=== PATIENT | male | born 1930 ===

== ENCOUNTER 2019-12-05 10:51 | Observation (INO) ==
[2019-12-05 11:46] LABS: Hematocrit 38.5 % (40.1-51.0); Hemoglobin 11.7 g/dL (13.7-17.5); Mean Cell Volume 99.5 fL (80.0-100.0); Mean Corpuscular HGB Conc 30.4 g/dL (31.0-36.0); Mean Platelet Volume 12.1 fL (7.4-10.4); Platelet Count 276 K/mcL (140-440); RBC 3.87 M/mcL (4.63-6.08); Red Cell Distribution Width 14.4 % (11.5-14.5); WBC 7.7 K/mcL (4.50-11.00)
--- NOTE | 2019-12-05 11:56 | XRay Report ---
CLINICAL INFORMATION: preop COMPARISON: 06/29/2018 FINDINGS: Moderate cardiomegaly is unchanged. Sternotomy changes again noted. Mediastinum and pulmonary vessels are normal. Lungs are clear. No effusions. IMPRESSION: Moderate stable cardiomegaly Interpreted and Authenticated by: Deshaun Kirby 12/05/19
[2019-12-05 12:01] LABS: INR 1.1 (0.9-1.1); Prothrombin Time 14.8 sec (11.9-14.5)
[2019-12-05 12:03] LABS: ALT/SGPT 28 U/l (0-40); AST/SGOT 26 U/l (0-37); Albumin 3.9 gm/dL (3.2-5.2); Albumin/Globulin Ratio 1.2 (1.0-2.3); Alkaline Phosphatase 129 U/L (39-117); Bilirubin,Total 0.4 mg/dL (0.0-1.0); Blood Urea Nitrogen 15 mg/dl (8-23); Calcium 9.7 mg/dl (8.6-10.4); Carbon Dioxide 20 mmol/L (22-30); Chloride 107 mmol/L (96-108); Globulin 3.2 gm/dL (2.2-3.7); Glomerular Filtration Rate 41; Glucose 92 mg/dL (70-105)
[2019-12-05] MEDS ORDERED: PIPERACILLIN SODIUM/TAZOBACTAM 3.375 GM in DEXTROSE 5% IN WATER 50 ML IV ONE (12:40)
--- NOTE | 2019-12-05 12:40 | Emergency Department Note ---
Lower Extremity Injury HPI General Chief Complaint: Extremity Injury, Lower Stated Complaint: leg wound Time Seen by Provider: 12/05/19 10:54 Source: patient Mode of arrival: ambulatory Limitations: no limitations History of Present Illness HPI Narrative: Narrative: 89-year-old male presents after being sent over from Dr. pires's office. States 20 days ago he hit his right leg on a pellet. Has a wound and cellulitis subsequently that is getting worse rather than better. They have put him on a couple antibiotics with no improvement including doxycycline and Augmentin. Dr. wang states he continues to get worse rather than better and he would like us to take him to the OR to clean it out. No fever but has had chills intermittently the last few days. No nausea, vomiting, or diarrhea. Patient states he is on blood thinners for A. fib and he believes this made the wound worse originally with a large hematoma. Other than going to wound care and the oral antibiotics, no other home treatments. Has been trying to keep it elevated as much as possible. Related Data Home Medications Medication Instructions Recorded Confirmed amlodipine 2.5 mg PO QDAY 12/05/19 12/05/19 doxycycline hyclate 100 mg PO QDAY 12/05/19 12/05/19 nwboygsvygd-mxrhudgow-acz C-Mn 1 cap PO DAILY 12/05/19 12/05/19 [Glucosamine Chondroitin MaxStr] lisinopril 20 mg PO QDAY 12/05/19 12/05/19 omega-3 fatty acids-fish oil [Fish 1 cap PO DAILY 12/05/19 12/05/19 Oil] simvastatin 40 mg PO QHS 12/05/19 12/05/19 warfarin See Rx Instructions .ROUTE .COMPLEX 12/05/19 12/05/19 warfarin See Rx Instructions .ROUTE .COMPLEX 12/05/19 12/05/19 Allergies Allergy/AdvReac Type Severity Reaction Status Date / Time hydrocodone AdvReac Intermediate Agitated Verified 12/05/19 12:50 Review of Systems ROS ROS Narrative: Narrative: All systems ED: reviewed and negative except as stated. [facility] Narrative Patient History Narrative: Narrative: Medical/Surgical/Family History All Active Problems (Updated 12/05/19 @ 12:40 by ALICIA Mora) Leg wound, right (Acute) Cellulitis of right leg (Acute) Atrial fibrillation (Acute) Surgical History (Updated 12/05/19 @ 12:37 by ALICIA Mora) Aortic valve replaced (Acute) H/O knee surgery (Acute) History of cataract surgery (Acute) Social History Smoking Status: Never smoker Alcohol Intake Frequency: does not drink Substance Use: does not use Exam Narrative Narrative: Narrative: General Limitations: no limitations General appearance: Present alert Head Head: Present atraumatic and normocephalic Eye Eye: Present normal appearance; Absent conjunctival injection ENT ENT: Present normal exam, normal oropharynx, mucous membranes moist and normal external ear exam Neck Neck: Present normal inspection; Absent lymphadenopathy Chest Chest: Present symmetric chest wall rise Respiratory Respiratory: Present normal lung sounds bilaterally; Absent respiratory distress, rales/crackles, wheezes, stridor and accessory muscle use Cardiovascular Cardiovascular: Present regular rate and normal heart sounds Extremities Extremities: Present other (right leg with dressing CDI, surrounding redness/cellulits. Please see pictures by wound care this morning) Neurological Neurological: Present alert and oriented X3 Psychiatric Psychiatric: Present normal affect and normal mood Skin Skin: Present warm (WNL) Course Vital Signs Vital signs: Vital Signs Temperature 97.0 F 12/05/19 10:52 Pulse Rate 82 12/05/19 10:52 Respiratory Rate 19 12/05/19 10:52 Blood Pressure 161/78 12/05/19 10:52 Pulse Oximetry (%) 95 12/05/19 10:52 Temperature 97.0 F 12/05/19 10:52 Pulse Rate 77 12/05/19 12:47 Respiratory Rate 19 12/05/19 10:52 Blood Pressure 150/51 12/05/19 12:47 Pulse Oximetry (%) 95 12/05/19 12:47 MDM MDM Narrative Medical decision making narrative: Narrative: Failed outpatient antibiotic treatment. Will give IV antibiotics and prep for surgical debridement to the wound of the right lower leg. We do have a call into the hospitalist and Dr. wang with wound care will consult. @ 1400 I did speak with hospitalist Dr Ladd who agrees to accept pt Lab Data Lab results reviewed: Yes I reviewed the patient's lab results. Result diagrams: 12/05/19 11:10 12/05/19 11:10 Labs: Lab Results 12/05/19 12/05/19 12/05/19 Range/Units 11:10 11:10 11:10 WBC 7.7 (4.50-11.00) K/mcL RBC 3.87 L (4.63-6.08) M/mcL Hgb 11.7 L (13.7-17.5) g/dL Hct 38.5 L (40.1-51.0) % MCV 99.5 (80.0-100.0) fL MCH 30.2 (26.0-34.0) pg MCHC 30.4 L (31.0-36.0) g/dL RDW 14.4 (11.5-14.5) % Plt Count 276 (140-440) K/mcL MPV 12.1 H (7.4-10.4) fL Total Counted 100 Seg Neutrophils % 72 (38-78) % Band Neutrophils % 1 (0-10) % Lymphocytes % 8 L (15-49) % Monocytes % (Manual) 10 (1-12) % Eosinophils % (Manual) 6 (0-7) % Reactive Lymphocytes 3 H (0-2) % Platelet Estimate Normal (NORMAL) RBC Morphology Abnorm A (NORMAL) Anisocytosis Few A (NONE SEEN) Macrocytosis Few A (NONE SEEN) PT 14.8 H (11.9-14.5) sec INR 1.1 (0.9-1.1) VBG Lactic Acid (0.5-2.0) mmol/L Sodium 140 (133-145) mmol/L Potassium 4.8 (3.3-5.1) mmol/L Chloride 107 (96-108) mmol/L Carbon Dioxide 20 L (22-30) mmol/L Anion Gap 13.0 (8-16) BUN 15 (8-23) mg/dl Creatinine 1.5 H (0.7-1.2) mg/dl GFR Calculation 41 Glucose 92 (70-105) mg/dL Calcium 9.7 (8.6-10.4) mg/dl Total Bilirubin 0.4 (0.0-1.0) mg/dL AST 26 (0-37) U/l ALT 28 (0-40) U/l Alkaline Phosphatase 129 H (39-117) U/L Total Protein 7.1 (5.9-8.4) gm/dL Albumin 3.9 (3.2-5.2) gm/dL Globulin 3.2 (2.2-3.7) gm/dL Albumin/Globulin Ratio 1.2 (1.0-2.3) Urine Color Urine Appearance Urine pH (5.0-9.0) Ur Specific [place] (1.000-1.035) Urine Protein (NEG) mg/dL Urine Glucose (UA) (NEG) mg/dL Urine Ketones (NEG) mg/dL Urine Occult Blood (<0.03) mg/dL Urine Nitrate (NEG) Urine Bilirubin (NEG) mg/dL Urine Urobilinogen (NEG) mg/dL Ur Leukocyte Esterase (NEG) /uL Urine RBC (0-1) /hpf Urine WBC (0-4) /hpf Ur Squamous Epith Cells (0-4) /hpf Urine Bacteria (0) /hpf Hyaline Casts (0-2) /lpf Urine Mucus (0) /hpf Ur Culture Indicated? 12/05/19 12/05/19 Range/Units 11:10 12:32 WBC (4.50-11.00) K/mcL RBC (4.63-6.08) M/mcL Hgb (13.7-17.5) g/dL Hct (40.1-51.0) % MCV (80.0-100.0) fL MCH (26.0-34.0) pg MCHC (31.0-36.0) g/dL RDW (11.5-14.5) % Plt Count (140-440) K/mcL MPV (7.4-10.4) fL Total Counted Seg Neutrophils % (38-78) % Band Neutrophils % (0-10) % Lymphocytes % (15-49) % Monocytes % (Manual) (1-12) % Eosinophils % (Manual) (0-7) % Reactive Lymphocytes (0-2) % Platelet Estimate (NORMAL) RBC Morphology (NORMAL) Anisocytosis (NONE SEEN) Macrocytosis (NONE SEEN) PT (11.9-14.5) sec INR (0.9-1.1) VBG Lactic Acid 1.6 (0.5-2.0) mmol/L Sodium (133-145) mmol/L Potassium (3.3-5.1) mmol/L Chloride (96-108) mmol/L Carbon Dioxide (22-30) mmol/L Anion Gap (8-16) BUN (8-23) mg/dl Creatinine (0.7-1.2) mg/dl GFR Calculation Glucose (70-105) mg/dL Calcium (8.6-10.4) mg/dl Total Bilirubin (0.0-1.0) mg/dL AST (0-37) U/l ALT (0-40) U/l Alkaline Phosphatase (39-117) U/L Total Protein (5.9-8.4) gm/dL Albumin (3.2-5.2) gm/dL Globulin (2.2-3.7) gm/dL Albumin/Globulin Ratio (1.0-2.3) Urine Color Yellow Urine Appearance Clear Urine pH 6.0 (5.0-9.0) Ur Specific [place] 1.015 (1.000-1.035) Urine Protein 100 A (NEG) mg/dL Urine Glucose (UA) Negative (NEG) mg/dL Urine Ketones Neg (NEG) mg/dL Urine Occult Blood Neg (<0.03) mg/dL Urine Nitrate Neg (NEG) Urine Bilirubin Neg (NEG) mg/dL Urine Urobilinogen Neg (NEG) mg/dL Ur Leukocyte Esterase Neg (NEG) /uL Urine RBC 0 (0-1) /hpf Urine WBC < 1 (0-4) /hpf Ur Squamous Epith Cells 0 (0-4) /hpf Urine Bacteria 0 (0) /hpf Hyaline Casts 7 H (0-2) /lpf Urine Mucus Few (0) /hpf Ur Culture Indicated? No Radiology Data Radiology results reviewed: Yes I reviewed the patient's radiology results. Discharge Plan Patient/Caregiver Discharge Instructions Pt seen by SCADA TECHNICIAN/PA only: Yes Clinical Impression: Cellulitis of right leg Leg wound, right Qualifiers: Encounter type: subsequent encounter Qualified Code(s): S81.801D - Unspecified open wound, right lower leg, subsequent encounter Patient Disposition: Xfer As Outpt/Obs ([facility]) Condition: Fair Follow up with: William Wang [Primary Care Provider] - Hammad Mahmood MD [Physician] - Prescriptions: No Action doxycycline hyclate 100 mg Capsule 100 mg PO QDAY RF: 0 lisinopril 20 mg Tablet 20 mg PO QDAY RF: 0 amlodipine 2.5 mg Tablet 2.5 mg PO QDAY RF: 0 simvastatin 40 mg Tablet 40 mg PO QHS RF: 0 warfarin 5 mg Tablet See Rx Instructions .ROUTE .COMPLEX RF: 0 swnhbrzidvk-hdhwjfnqt-dlj C-Mn [Glucosamine Chondroitin MaxStr] 500-400 mg Capsule 1 cap PO DAILY RF: 0 omega-3 fatty acids-fish oil [Fish Oil] 360-1,200 mg Capsule 1 cap PO DAILY RF: 0 warfarin 2.5 mg Tablet See Rx Instructions .ROUTE .COMPLEX RF: 0
--- NOTE | 2019-12-05 12:59 | XRay Report ---
CLINICAL INFORMATION: wound, cellulitis, worsening COMPARISON: None. FINDINGS: Diffuse osteoporosis noted. No specific radiographic evidence for osteomyelitis. Joint spaces are normal in width and alignment arthritic change. Mild diffuse soft tissue swelling noted laterally IMPRESSION: Few soft tissue swelling, most prominent laterally, compatible cellulitis. No specific evidence for osteomyelitis. Interpreted and Authenticated by: Deshaun Kirby 12/05/19
[2019-12-05 13:07] LABS: Anisocytosis FEW (NONE SEEN); Band Neutrophils % 1 % (0-10); Eosinophils % (Manual) 6 % (0-7); Lymphocytes % 8 % (15-49); Macrocytosis FEW (NONE SEEN); Monocytes % (Manual) 10 % (1-12); Platelet Estimate NORMAL (NORMAL); RBC Morphology ABNORM (NORMAL); Reactive Lymphocytes 3 % (0-2); Segmented Neutrophils % 72 % (38-78)
[2019-12-05 13:33] LABS: Appearance,Urine CLEAR; Bacteria,Urine 0 /hpf (0); Bilirubin,Urine NEG (NEG); Color,Urine YELLOW; Culture Indicated,Urine NO; Glucose,Urine (UA) NEGATIVE (NEG); Ketones,Urine NEG (NEG); Leukocyte Esterase,Urine NEG /uL (NEG); Mucus,Urine FEW /hpf (0); Nitrate,Urine NEG (NEG); Protein,Urine 100 mg/dL (NEG); Specific Gravity,Urine 1.015 (1.000-1.035); Urine Blood NEG mg/dL (<0.03); Urine Hyaline Cast 7 /lpf (0-2); Urine RBC 0 /hpf (0-1); Urine Squamous Epithelial Cell 0 /hpf (0-4); Urine WBC < 1 /hpf (0-4); Urobilinogen,Urine NEG (NEG)
--- NOTE | 2019-12-05 16:14 | Internal Med History&Physical ---
HPI History of Present Illness Patient information: Note initiated : 12/05/19 at 4:08 pm Service Date, if different from initiated Date: [] Patient: Ugo Agustin a 89 y/o M admitted on for leg wound. Chief Complaint: [] History of present illness: Patient is an 89-year-old male with no significant past medical history who was ascended to the ER by wound care Dr. Mahmood office today. At the per patient, he hit his right leg on a pellet about 20 days ago. Since that, in the right leg has been becoming sweating and redness which has been worsening. Patient has been taken a couple of antibiotics including doxycycline and Augmentin which did not help. In the ER, x-ray -no osteomyelitis. Dr. Mahmood was consulted who will do a debridement this afternoon. When I saw this patient in the ER, other than mild pain from the right leg, he was fine. Denied headache, dizziness, chest pain, shortness breath, fever, chills, abdominal pain, or dysuria. Review of Systems All systems: reviewed and no additional remarkable complaints except as stated PFSH PFSH All Active Problems Leg wound, right (Acute) Cellulitis of right leg (Acute) Atrial fibrillation (Acute) Surgical History Aortic valve replaced (Acute) H/O knee surgery (Acute) History of cataract surgery (Acute) Social History smoking status: Never smoker alcohol intake frequency: does not drink substance use type: does not use MEDS/ALLERGIES Home Medications and Allergies Home Medications Medication Instructions Recorded Confirmed Type amlodipine 2.5 mg PO QDAY 12/05/19 12/05/19 History doxycycline hyclate 100 mg PO QDAY 12/05/19 12/05/19 History lmsmdnwceph-egtbfkklu-hex C-Mn 1 cap PO DAILY 12/05/19 12/05/19 History [Glucosamine Chondroitin MaxStr] lisinopril 20 mg PO QDAY 12/05/19 12/05/19 History omega-3 fatty acids-fish oil [Fish 1 cap PO DAILY 12/05/19 12/05/19 History Oil] simvastatin 40 mg PO QHS 12/05/19 12/05/19 History warfarin See Rx Instructions .ROUTE .COMPLEX 12/05/19 12/05/19 History warfarin See Rx Instructions .ROUTE .COMPLEX 12/05/19 12/05/19 History Allergies Allergy/AdvReac Type Severity Reaction Status Date / Time hydrocodone AdvReac Intermediate Agitated Verified 12/05/19 12:50 EXAM Constitutional Vitals: Temp Pulse Resp BP Pulse Ox 97.0 F 69 19 144/88 94 12/05/19 10:52 12/05/19 15:31 12/05/19 10:52 12/05/19 15:46 12/05/19 15:31 Additional findings Additional findings: General - No acute distress Eyes - PERRLA, EOM intact ENT no rhinorrhea, no noticeable or palpable swelling, no redness or rash around throat or on face Neck supple, no JVD, no thyromegaly Respiratory: Lungs -clear, no wheezing or crackles. Cardiovascular - RRR no m/r/g, GI - Normal bowel sounds, no distended, soft. Extremeties - right leg wrapped (refer to picture) Hemo/lymphatic/immune no lymphadenopathy Neurological Alert and oriented x 3, no focal neurological deficits. Psychiatry flat affect DATA Data Completed and Pending Labs: Labs from last 24 hours 12/05/19 12/05/19 12/05/19 12:57 12:32 11:10 WBC RBC Hgb Hct MCV MCH MCHC RDW Plt Count MPV Total Counted Seg Neutrophils % Band Neutrophils % Lymphocytes % Monocytes % (Manual) Eosinophils % (Manual) Reactive Lymphocytes Platelet Estimate RBC Morphology Anisocytosis Macrocytosis PT INR VBG Lactic Acid 1.6 Sodium Potassium Chloride Carbon Dioxide Anion Gap BUN Creatinine GFR Calculation Glucose Calcium Total Bilirubin AST ALT Alkaline Phosphatase Total Protein Albumin Globulin Albumin/Globulin Ratio Urine Color Yellow Urine Appearance Clear Urine pH 6.0 Ur Specific [place] 1.015 Urine Protein 100 A Urine Glucose (UA) Negative Urine Ketones Neg Urine Occult Blood Neg Urine Nitrate Neg Urine Bilirubin Neg Urine Urobilinogen Neg Ur Leukocyte Esterase Neg Urine RBC 0 Urine WBC < 1 Ur Squamous Epith Cells 0 Urine Bacteria 0 Hyaline Casts 7 H Urine Mucus Few Ur Culture Indicated? No SARS-CoV-2 (PCR) Covid-19 negative 12/05/19 12/05/19 12/05/19 11:10 11:10 11:10 WBC 7.7 RBC 3.87 L Hgb 11.7 L Hct 38.5 L MCV 99.5 MCH 30.2 MCHC 30.4 L RDW 14.4 Plt Count 276 MPV 12.1 H Total Counted 100 Seg Neutrophils % 72 Band Neutrophils % 1 Lymphocytes % 8 L Monocytes % (Manual) 10 Eosinophils % (Manual) 6 Reactive Lymphocytes 3 H Platelet Estimate Normal RBC Morphology Abnorm A Anisocytosis Few A Macrocytosis Few A PT 14.8 H INR 1.1 VBG Lactic Acid Sodium 140 Potassium 4.8 Chloride 107 Carbon Dioxide 20 L Anion Gap 13.0 BUN 15 Creatinine 1.5 H GFR Calculation 41 Glucose 92 Calcium 9.7 Total Bilirubin 0.4 AST 26 ALT 28 Alkaline Phosphatase 129 H Total Protein 7.1 Albumin 3.9 Globulin 3.2 Albumin/Globulin Ratio 1.2 Urine Color Urine Appearance Urine pH Ur Specific [place] Urine Protein Urine Glucose (UA) Urine Ketones Urine Occult Blood Urine Nitrate Urine Bilirubin Urine Urobilinogen Ur Leukocyte Esterase Urine RBC Urine WBC Ur Squamous Epith Cells Urine Bacteria Hyaline Casts Urine Mucus Ur Culture Indicated? SARS-CoV-2 (PCR) A/P Narrative A/P Narrative: 1. Leg wound, right 2. leg hematoma, right 3. Cellulitis of left, right XR - showed "Few soft tissue swelling, most prominent laterally, compatible ellulitis. No specific evidence for osteomyelitis." Blood culture wound culture Discussed with wound care Dr. Mahmood, who will do debridgement this afternoon. Vanco + zosyn x 1 was given in the OR, waiting for culture (since he has been treated by antiobiotics). Really appreciate it. wound care 4. Atrial fibrillation Had been on warfarin which was stopped 1 week ago due to to hematoma Discussed with pt and the benefits and risk of warfarin treatment. They fully understood. HR controlled 5. CKD stage 3, creatinine 2.0 on 07/05/2018 Avoid nephrotoxic meds Repeat renal function in morning 6. DVT prophylaxis: Heparin 7. CODE STATUS: DNR/DNI Time Spent With Patient Time: Total time spent is greater than 50% in coordination of care (as documented) at patient's floor/unit and/or counseling patient:
[2019-12-05] MEDS ORDERED: GLYCOPYRROLATE 0.2 MG/ML VIAL IV ONE (16:20)
[2019-12-05] MEDS ORDERED: ONDANSETRON 4 MG/2 ML VIAL ONE (16:20)
[2019-12-05] MEDS ORDERED: PROPOFOL 200 MG/20 ML VIAL IV ONE (16:20)
[2019-12-05] MEDS ORDERED: fentaNYL 100 MCG/2 ML VIAL IV ONE (16:20)
[2019-12-05] MEDS ORDERED: DEXAMETHASONE 10 MG/ML VIAL ONE (16:20)
[2019-12-05] MEDS ORDERED: PHENYLEPHRINE 10 MG/ML VIAL ONE (16:20)
[2019-12-05] MEDS ORDERED: LIDOCAINE HCL/PF 100 MG/5 ML SYRINGE IV ONE (16:20)
[2019-12-05] MEDS ORDERED: KETAMINE 100 MG/ML ML ONE (16:20)
[2019-12-05] MEDS ORDERED: cefTRIAXone 1 GM VIAL IV ONE (16:30)
[2019-12-05] MEDS ORDERED: VANCOMYCIN 1,500 MG in 0.9 % SODIUM CHLORIDE 500 ML IV ONE (16:30)
[2019-12-05] MEDS ORDERED: IPRATROPIUM/ALBUTEROL 3 ML AMPUL.NEB NEB PRN (16:44)
[2019-12-05] MEDS ORDERED: FLUMAZENIL 0.1 MG/ML ML IV PRN (16:44)
[2019-12-05] MEDS ORDERED: NALOXONE HCL 0.4 MG/ML VIAL IV PRN (16:44)
[2019-12-05] MEDS ORDERED: BENZOCAINE/MENTHOL 1 LOZENGE PO PRN (16:44)
[2019-12-05] MEDS ORDERED: fentaNYL 100 MCG/2 ML VIAL IV PRN (16:44)
[2019-12-05] MEDS ORDERED: LACTATED RINGERS 250 ML IV PRN (16:44)
[2019-12-05] MEDS ORDERED: ACETAMINOPHEN 1,000 MG/100 ML BOTTLE IV ONE (16:44)
--- NOTE | 2019-12-05 16:44 | Event Note ---
Event Note Event Note: Advanced Care Planning Documents: POLST form completed: Yes. I explained CPR and intubation in detail to Mr. Andujar and his , who declined CPR and intubation.
[2019-12-05] MEDS ORDERED: LACTATED RINGERS 1,000 ML IV SCH (16:45)
[2019-12-05] MEDS ORDERED: GENTAMICIN SULFATE 800 MG/20 ML VIAL IR ONE (17:04)
[2019-12-05] MEDS ORDERED: morphine 4 MG/ML VIAL IV PRN ×2 (17:13→17:39)
[2019-12-05] MEDS ORDERED: ONDANSETRON 4 MG/2 ML VIAL IV PRN ×2 (17:13→17:39)
[2019-12-05] MEDS ORDERED: traMADol 50 MG TABLET PO PRN ×2 (17:20→17:39)
--- NOTE | 2019-12-05 17:27 | Brief Operative Note ---
Brief Operative Note Date of procedure: 12/05/19 Pre-op diagnosis: Sepsis: Trauma wound RIGHT leg, Liquefying hematoma Post-op diagnosis: same Procedure: Excision of Gangrenous skin, Evacuation of hematoma, pulse lavage irrigation and open packing, Grafts/Implants: No Anesthesia: GLMA Findings: Organized clots (500+ CC ) + Blood loss in surgery 30 CC Complications: none Surgeon: Hammad Mahmood Estimated blood loss (cc): 530 Specimens Removed/Pathology: other (Gangrenous skin, Blood clots ( Hematoma for c/s and pathology )) Condition: stable Disposition: PACU
[2019-12-05] MEDS: HEPARIN 5,000 UNIT/ML VIAL SQ SCH (20:41)
[2019-12-05] MEDS: DOCUSATE SODIUM 100 MG CAPSULE PO SCH (20:41)
[2019-12-05] MEDS: SIMVASTATIN 40 MG TABLET PO SCH (20:41)
[2019-12-05] MEDS: 0.9 % SODIUM CHLORIDE 10 ML SYRINGE IV SCH (20:42)
[2019-12-05] MEDS ORDERED: HEPARIN 5,000 UNIT/ML VIAL SQ SCH (21:00)
[2019-12-05] MEDS ORDERED: SIMVASTATIN 40 MG TABLET PO SCH (21:00)
[2019-12-05] MEDS ORDERED: DOCUSATE SODIUM 100 MG CAPSULE PO SCH (21:00)
[2019-12-05] MEDS ORDERED: 0.9 % SODIUM CHLORIDE 10 ML SYRINGE IV SCH (22:00)
[2019-12-06] MEDS: 0.9 % SODIUM CHLORIDE 10 ML SYRINGE IV SCH ×3 (06:07→20:29)
[2019-12-06 06:41] LABS: Basophils # (Auto) 0.02 K/mcL (0.00-0.30); Basophils % (Auto) 0.4 % (0.0-2.0); Eosinophils # (Auto) 0.03 K/mcL (0.00-0.70); Eosinophils % (Auto) 0.6 % (0.0-7.0); Granulocytes % (Auto) 89.7 % (38.0-78.0); Hematocrit 34.1 % (40.1-51.0); Hemoglobin 10.4 g/dL (13.7-17.5); Lymphocytes % (Auto) 7.9 % (15.5-49.0); Mean Cell Volume 100.6 fL (80.0-100.0); Mean Corpuscular HGB Conc 30.5 g/dL (31.0-36.0); Mean Platelet Volume 12.7 fL (7.4-10.4); Monocytes # (Auto) 0.07 K/mcL (0.10-0.90); Monocytes % (Auto) 1.4 % (1.0-12.0); Platelet Count 249 K/mcL (140-440); RBC 3.39 M/mcL (4.63-6.08); Red Cell Distribution Width 14.3 % (11.5-14.5); WBC 5.1 K/mcL (4.50-11.00)
[2019-12-06 07:09] LABS: ALT/SGPT 19 U/l (0-40); AST/SGOT 20 U/l (0-37); Albumin 3.3 gm/dL (3.2-5.2); Albumin/Globulin Ratio 1.3 (1.0-2.3); Alkaline Phosphatase 106 U/L (39-117); Bilirubin,Total 0.3 mg/dL (0.0-1.0); Blood Urea Nitrogen 19 mg/dl (8-23); Calcium 9.4 mg/dl (8.6-10.4); Carbon Dioxide 22 mmol/L (22-30); Chloride 106 mmol/L (96-108); Globulin 2.6 gm/dL (2.2-3.7); Glomerular Filtration Rate 35; Glucose 162 mg/dL (70-105)
--- NOTE | 2019-12-06 07:09 | Operative Note ---
DATE OF OPERATION: 12/05/2019 PREOPERATIVE DIAGNOSES: Sepsis, complicated skin and skin structure infection; trauma wound right lower lateral leg with a liquefying hematoma and gangrene of skin. POSTOPERATIVE DIAGNOSES: Sepsis, complicated skin and skin structure infection; trauma wound right lower lateral leg with a liquefying hematoma and gangrene of skin. PROCEDURE: Excision of gangrenous skin; evacuation of hematoma; pulse lavage irrigation and open packing. ANESTHESIA: General laryngeal mask airway. FINDINGS: Organized blood clots under the necrotic skin, about 500 mL. SURGICAL BLOOD LOSS: During the procedure approximately 30 mL COMPLICATIONS: None. SPECIMENS FOR PATHOLOGY: Gangrenous skin, blood clots, hematoma, tissue for culture and sensitivity and pathology. WOUND DIMENSIONS: Post-surgical 9 x 6 cm. Undermining at 12 o'clock was 6 cm, at 6 o'clock for 4 cm. Wound depth about 5 cm. PROCEDURE IN DETAIL: I had reviewed the lab results and imaging studies. Detailed discussion about the indication of procedure, risks, benefits, complications and different case scenarios was carried out with the patient and family members, his and his daughter after workup in the Emergency Room. After obtaining informed consent, patient was taken to the operating room operating room, anesthetized uneventfully in supine position. A timeout was called. Intravenous antibiotics were given. Preoperative photographs were taken. The patient was placed in Trendelenburg position. First, the hematoma site was opened and digitally explored. Uigy-wq-[id number] all the devitalized necrotic skin was excised with pickup and Cazares scissors. Later, the copious organized soft blood clots were evacuated with digital exploration. This wound had extended almost up to the upper third of the leg superiorly and up to the ankle inferiorly. There was undermining of about 2 to 3 cm extending up to the keen anteriorly and to the calf posteriorly. All the blood clots were taken down. The fascia covering the musculature was intact. First, the wound was washed with normal saline. Later, we used 3 liters of normal saline mixed with 800 mg of gentamicin for pulse lavage irrigation. Towards completion, the field was looking clean. There were no residual clots or tissue debris that needed to be excised or removed. We placed a large Xeroform gauze on the wound bed and reinforced this with unfolded 2-inch Kerlix roll soaked in Betadine solution. This was held in place with 4 x 4 gauze, Kerlix bandage, ABD pad and Mykel bandages respectively. The patient recovered from operation uneventfully. He was taken to the med/surg floor in stable condition. I explained the intraoperative findings in detail to the patient's and daughter. Management was discussed and reviewed with the hospitalist and the nursing staff. VD:charan Job ID: [id number] Doc ID: [id number] Hammad MELLO
[2019-12-06] MEDS ORDERED: FUROSEMIDE 20 MG/2 ML VIAL IV ONE (07:33)
[2019-12-06] MEDS ORDERED: DEXTROSE 50% 50 ML VIAL IV ONE (07:35)
[2019-12-06] MEDS ORDERED: INSULIN LISPRO 1 UNIT/0.01 ML UNIT SQ ONE (07:36)
[2019-12-06] MEDS: HEPARIN 5,000 UNIT/ML VIAL SQ SCH ×2 (08:29→20:28)
[2019-12-06] MEDS: DOCUSATE SODIUM 100 MG CAPSULE PO SCH ×2 (08:29→20:29)
[2019-12-06] MEDS: amLODIPine 5 MG TABLET PO SCH (08:29)
[2019-12-06] MEDS ORDERED: LISINOPRIL 20 MG TABLET PO SCH ×2 (09:00)
[2019-12-06] MEDS ORDERED: amLODIPine 5 MG TABLET PO SCH (09:00)
[2019-12-06 13:12] LABS: Blood Urea Nitrogen 22 mg/dl (8-23); Calcium 9.6 mg/dl (8.6-10.4); Carbon Dioxide 19 mmol/L (22-30); Chloride 104 mmol/L (96-108); Glomerular Filtration Rate 29; Glucose 147 mg/dL (70-105)
[2019-12-06] MEDS ORDERED: 0.9 % SODIUM CHLORIDE 1,000 ML BAG IV SCH (14:30)
--- NOTE | 2019-12-06 14:51 | Nephrology Consult Note ---
HPI Data of Consult Primary Care Provider: William Wang Consult Narrative Patient Information: Note initiated : 12/06/19 at 2:48 pm Service Date, if different from initiated Date: [] Patient: Ugo Agustin 89 y/o M admitted on 12/05/19 for leg wound. Chief Complaint: CKD, hyperkalemia 89 y.o M sent to the ED 12/05/[address] Mahmood's office. Patient had leg trauma beginning of November, had edema/ erythema/ hematoma, saw Dr. Ortiz s/p excision of gangrenous skin, evacuation of hematoma, lavage and irrigation 12/06/19. Reports personal history of CKD for which he was seeing nephrology, but was lost from follow up. Hx of NSAID use for joint pain, also on ACEI. Denies CT/ contrast exposure over the last 2 weeks. ROS as above. denies urinary symptoms, SOB, edema, fever, chills, nausea, vomiting, abdominal pain. Physical exam General elderly male in no acute distress HEENT head is normocephalic, atraumatic. Nonicteric sclera. Dry oral mucosa Respiratory nonlabored respirations, symmetric chest expansion, no adventitious sounds over anterior aspect Cardiovascular no rub, no gallop, no lower extremity edema Abdomen soft, nontender Neuro alert, oriented, clear speech, moves all extremities Skin warm and dry cc:: CC: Cori Ladd PFSH PFSH All Active Problems (Updated 12/07/19 @ 08:22 by Chantel Weber MD) Decreased renal function (Acute) Hyperkalemia (Acute) CKD (chronic kidney disease) (Chronic) Leg wound, right (Acute) Cellulitis of right leg (Acute) Atrial fibrillation (Acute) Surgical History Aortic valve replaced (Acute) H/O knee surgery (Acute) History of cataract surgery (Acute) Social History smoking status: Never smoker alcohol intake frequency: does not drink substance use type: does not use MEDS/ALLERGIES Home Medications and Allergies Home Medications Medication Instructions Recorded Confirmed Type amlodipine 2.5 mg PO QDAY 12/05/19 12/05/19 History qzaxrbikjyi-gauwpryca-rma C-Mn 1 cap PO DAILY 12/05/19 12/05/19 History [Glucosamine Chondroitin MaxStr] lisinopril 20 mg PO QDAY 12/05/19 12/05/19 History omega-3 fatty acids-fish oil [Fish 1 cap PO DAILY 12/05/19 12/05/19 History Oil] simvastatin 40 mg PO QHS 12/05/19 12/05/19 History Allergies Allergy/AdvReac Type Severity Reaction Status Date / Time hydrocodone AdvReac Mild Agitated Verified 12/06/19 07:35 Physical Examination Vital Signs Vital signs: Temp Pulse Resp BP Pulse Ox 36.8 C 71 24 H 99/54 92 12/06/19 11:43 12/06/19 11:43 12/06/19 14:08 12/06/19 11:43 12/06/19 11:43 Results Lab Results Result Diagrams: 12/07/19 05:10 12/07/19 05:10 Lab results: Most recent lab results Creatinine 2.0 mg/dl (0.7-1.2) H 12/06/19 11:15 Calcium 9.6 mg/dl (8.6-10.4) 12/06/19 11:15 A/P Assessment and plan (1) CKD (chronic kidney disease): Status: Chronic (2) Hyperkalemia: Status: Acute Narrative A/P Narrative: Scr 1.5 on 12/05/2019 --> 2 on 12/06/2019. he has baseline CKD, Scr was 2.0 on 07/05/2018 I/O 1.4L/ 1.08L could have a component of hemodynamic insult BP 166/91 12/04-->99/54 12/0512/05/2019 ua protein, 7 hyaline casts *hold ACEi; amlodipine 2.5 mg po PRN SBP =>150. avoid nephrotoxins including Mg/ phos containing stool softeners *check renal ultrasound *agree iv maintenance iv fluids *give one dose kayexalate hemodynamics and volume albumin 3.3 BP low normal to normotensive. 06/29/2018 Moderate cardiomegaly is unchanged. Sternotomy changes again noted. acid-base Bicarbonate 19. within the limitation of not having a blood gas, suspect metabolic acidosis 2/2 renal disease bone-mineral metabolism ca 9.4, check phosphorus in am. BUN/ K 22/5.3 management as above labs / assessment and plan reviewed with the patient Time Spent With Patient Time: Total time spent is greater than 50% in coordination of care (as documented) at patient's floor/unit and/or counseling patient: Total time spent with greater than 50% in coordination of care (as documented) at patient's floor/unit and/or counseling patient:: 25 - 35 minutes
--- NOTE | 2019-12-06 14:57 | Internal Med Progress Note ---
SUBJECTIVE Subjective Patient information: Note initiated : 12/06/19 at 2:52 pm Service Date, if different from initiated Date: [] Patient: Ugo Agustin 89 y/o M admitted on 12/05/19 for leg wound. Chief Complaint: [] Patient is an 89-year-old male with no significant past medical history who was ascended to the ER by wound care Dr. Mahmood office today. At the per patient, he hit his right leg on a pellet about 20 days ago. Since that, in the right leg has been becoming sweating and redness which has been worsening. Patient has been taken a couple of antibiotics including doxycycline and Augmentin which did not help. In the ER, x-ray -no osteomyelitis. Dr. Mahmood was consulted who will do a debridement this afternoon. When I saw this patient in the ER, other than mild pain from the right leg, he was fine. Denied headache, dizziness, chest pain, shortness breath, fever, c hills, abdominal pain, or dysuria. 12/05 Patient does not have any complaints. He had debridement yesterday by Dr. ruiz. pain is controlled. This afternoon his blood pressure is soft. Normal saline bolus 250 cc x 1 and continue IV fluid Potassium is high today. Nephrology consult. D50 and insulin, Lasix, Kayexalate added discontinued lisinopril Monitor blood pressure Review of Systems All systems: reviewed and no additional remarkable complaints except as stated Constitutional Vitals: Vital Signs Temp Pulse Resp BP Pulse Ox 98.3 F 71 24 H 99/54 92 12/06/19 11:43 12/06/19 11:43 12/06/19 14:08 12/06/19 11:43 12/06/19 11:43 Period Temp Pulse Resp BP Sys/Azar Pulse Ox Last 24 Hr 98.2 F-98.8 F 67-114 12-28 99-147/54-100 85-98 Intake and Output 12/06/19 12/06/19 12/06/19 05:59 13:59 21:59 Intake Total 200 440 Output Total 325 201 Balance -125 239 Intake & Output: Intake & Output 12/06/19 12/06/19 12/06/19 05:59 13:59 21:59 Intake Total 200 440 Output Total 325 201 Balance -125 239 Intake: Oral 200 440 Output: Void Amount 325 200 # of times incontinent of urine 1 Other: Meal Lunch Percent of Meal Consumed 100% Feeding Ability Independent Urine Appearance Clear Clear Urine Color Bright Yellow Bright Yellow Urine Odor Normal Stool Size Small Stool Color Brown Stool Consistency Soft Formed # Voids 1 # Bowel Movements 1 OBJ DATA Labs CBC & Chem 7: 12/06/19 05:05 12/06/19 11:15 Labs: Abnormal Lab Results 12/06/19 12/06/19 12/06/19 11:15 05:05 05:05 RBC 3.39 L Hgb 10.4 L Hct 34.1 L MCV 100.6 H MCHC 30.5 L MPV 12.7 H Gran % 89.7 H Lymph % (Auto) 7.9 L Lymph # (Auto) 0.40 L Pershing # (Auto) 0.07 L Lymphocytes % Reactive Lymphocytes RBC Morphology Anisocytosis Macrocytosis PT Potassium 5.3 H 5.7 H Carbon Dioxide 19 L Creatinine 2.0 H 1.7 H Glucose 147 H 162 H Alkaline Phosphatase Urine Protein Hyaline Casts 12/05/19 12/05/19 12/05/19 12:32 11:10 11:10 RBC Hgb Hct MCV MCHC MPV Gran % Lymph % (Auto) Lymph # (Auto) Pershing # (Auto) Lymphocytes % Reactive Lymphocytes RBC Morphology Anisocytosis Macrocytosis PT 14.8 H Potassium Carbon Dioxide 20 L Creatinine 1.5 H Glucose Alkaline Phosphatase 129 H Urine Protein 100 A Hyaline Casts 7 H 12/05/19 11:10 RBC 3.87 L Hgb 11.7 L Hct 38.5 L MCV MCHC 30.4 L MPV 12.1 H Gran % Lymph % (Auto) Lymph # (Auto) Pershing # (Auto) Lymphocytes % 8 L Reactive Lymphocytes 3 H RBC Morphology Abnorm A Anisocytosis Few A Macrocytosis Few A PT Potassium Carbon Dioxide Creatinine Glucose Alkaline Phosphatase Urine Protein Hyaline Casts Meds: Medications Amlodipine Besylate (Norvasc) 2.5 mg PO DAILY [facility] Last Admin: 12/06/19 08:29 Dose: 2.5 mg Documented by: Docusate Sodium (Colace) 100 mg PO BID [facility] Last Admin: 12/06/19 08:29 Dose: 100 mg Documented by: Heparin Sodium (Porcine) (Heparin) 5,000 unit SQ Q12 [facility] Last Admin: 12/06/19 08:29 Dose: 5,000 unit Documented by: Sodium Chloride (Sodium Chloride 0.9%) 1,000 mls @ 75 mls/hr IV .[id number] [facility] Morphine Sulfate (Morphine) 2 mg IV Q4HP PRN; Protocol PRN Reason: Per Pain Protocol Ondansetron HCl (Zofran) 4 mg IV Q6HP PRN PRN Reason: Nausea And Vomiting Simvastatin (Zocor) 40 mg PO QHS [facility] Last Admin: 12/05/19 20:41 Dose: 40 mg Documented by: Sodium Chloride (Saline Flush) 10 ml IV Q8 [facility] Last Admin: 12/06/19 06:07 Dose: 10 ml Documented by: Sodium Polystyrene Sulfonate (Kayexalate) 15 gm PO BID [facility] Tramadol HCl (Ultram) 50 mg PO Q4-6HP PRN; Protocol PRN Reason: Pain Last Admin: 12/05/19 23:33 Dose: 50 mg Documented by: A/P Narrative A/P Narrative: 1. Leg wound, right 2. leg hematoma, right 3. Cellulitis of left, right XR - showed "Few soft tissue swelling, most prominent laterally, compatible ellulitis. No specific evidence for osteomyelitis." Blood culture no growth so far wound culture pending Discussed with wound care Dr. Mahmood, who will do debridgement this afternoon. Vanco + zosyn x 1 was given in the OR, waiting for culture (since he has been treated by antiobiotics). Really appreciate it. wound care 4. Atrial fibrillation Had been on warfarin which was stopped 1 week ago due to to hematoma Discussed with pt and the benefits and risk of warfarin treatment. They fully understood. 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 Hyperkalemia D50 x 1 and insulin Lasix 20mg x 1 Repeat K, improving As per nephrology Dr. Weber, discontinue lisinopril and kayexalate Repeat K in am 7. DVT prophylaxis: Heparin 7. CODE STATUS: Filler And Trimmer Spent With Patient Time: Total time spent is greater than 50% in coordination of care (as docum ented) at patient's floor/unit and/or counseling patient:
[2019-12-06] MEDS: SODIUM POLYSTYRENE SULFONATE 15 GM/60 ML SUSPENSION PO SCH ×2 (15:46→20:28)
[2019-12-06] MEDS: 0.9 % SODIUM CHLORIDE 1,000 ML IV SCH (15:46)
[2019-12-06] MEDS: SIMVASTATIN 40 MG TABLET PO SCH (20:28)
--- NOTE | 2019-12-07 03:50 | Ultrasound Report ---
CLINICAL INFORMATION: decrease renal function COMPARISON: None. FINDINGS: Left kidney is lower limits normal in size: 9.5 x 4.5 cm. The right kidney is slightly enlarged - 11.2 x 6.1 cm. Parenchyma of both kidneys is mildly echogenic - more prominent on the left. Multiple simple cysts in both kidneys ranging up to 10 cm in the superior pole the right kidney. No solid lesions, stones or hydronephrosis. Arterial blood flow is grossly normal on color Doppler to both kidneys. Urinary bladder volume is 319 cc. patient unable to void. There are no focal bladder lesions. The prostate volume is elevated 60 cc IMPRESSION: Hyperechoic kidneys compatible with medical renal disease - more prominent on the left. Mild atrophy left kidney with slight compensatory hypertrophy of the right kidney. Multiple cysts in both kidneys ranging up to 10 cm the superior pole the right kidney. Distended urinary bladder with markedly enlarged prostate. Patient was unable to void Interpreted and Authenticated by: Deshaun Kirby 12/07/19
[2019-12-07] MEDS: 0.9 % SODIUM CHLORIDE 1,000 ML IV SCH (04:42)
[2019-12-07] MEDS: 0.9 % SODIUM CHLORIDE 10 ML SYRINGE IV SCH (05:15)
[2019-12-07 06:52] LABS: Basophils # (Auto) 0.04 K/mcL (0.00-0.30); Basophils % (Auto) 0.5 % (0.0-2.0); Eosinophils # (Auto) 0.06 K/mcL (0.00-0.70); Eosinophils % (Auto) 0.8 % (0.0-7.0); Granulocytes % (Auto) 73.4 % (38.0-78.0); Hematocrit 31.6 % (40.1-51.0); Hemoglobin 9.9 g/dL (13.7-17.5); Lymphocytes # (Auto) 1.34 K/mcL (1.50-4.80); Lymphocytes % (Auto) 16.9 % (15.5-49.0); Mean Cell Volume 99.1 fL (80.0-100.0); Mean Corpuscular HGB Conc 31.3 g/dL (31.0-36.0); Mean Platelet Volume 12.4 fL (7.4-10.4); Monocytes # (Auto) 0.67 K/mcL (0.10-0.90); Monocytes % (Auto) 8.4 % (1.0-12.0); Platelet Count 238 K/mcL (140-440); RBC 3.19 M/mcL (4.63-6.08); Red Cell Distribution Width 14.4 % (11.5-14.5); WBC 7.9 K/mcL (4.50-11.00)
[2019-12-07 07:08] LABS: ALT/SGPT 19 U/l (0-40); AST/SGOT 21 U/l (0-37); Albumin 3.4 gm/dL (3.2-5.2); Albumin/Globulin Ratio 1.4 (1.0-2.3); Alkaline Phosphatase 97 U/L (39-117); Bilirubin,Total 0.3 mg/dL (0.0-1.0); Calcium 9.4 mg/dl (8.6-10.4); Chloride 105 mmol/L (96-108); Globulin 2.4 gm/dL (2.2-3.7); Glomerular Filtration Rate 38; Glucose 88 mg/dL (70-105)
[2019-12-07 07:10] LABS: Prealbumin 17.9 mg/dl (20-40)
[2019-12-07 07:22] LABS: Thyroid Stimulating Hormone 4.54 uIU/ml (0.27-5.01)
[2019-12-07 07:29] LABS: Blood Urea Nitrogen 27 mg/dl (8-23); Carbon Dioxide 23 mmol/L (22-30)
--- NOTE | 2019-12-07 07:32 | Nephrology Progress Note ---
SUBJECTIVE Subjective Patient information: Note initiated : 12/07/19 at 7:32 am Service Date, if different from initiated Date: [] Patient: Ugo Agustin a 89 y/o M admitted on 12/05/19 for leg wound. Chief Complaint: 2 BMs last evening. Scr improving, hyperkalemia resolving. good urine output, unable to be accurately documented as sometimes incontinent Constitutional Vitals: Vital Signs Temp Pulse Resp BP Pulse Ox 36.6 C 78 24 H 136/72 92 12/07/19 03:56 12/07/19 03:56 12/07/19 03:56 12/07/19 03:56 12/07/19 03:56 Period Temp Pulse Resp BP Sys/Azar Pulse Ox Last 24 Hr 36.6 C-36.8 C 69-87 22-28 99-136/54-76 88-94 Intake and Output 12/06/19 12/07/19 12/07/19 21:59 05:59 13:59 Intake Total 680 1270 Output Total 1 151 Balance 679 1119 Weight 84.958 kg physical exam general elderly male in NAD HEENT normocephalic, atraumatic, eyes nonicteric sclera Respiratory nonlabored respirations, on room air, symmetric chest expansion's Skin warm and dry No left lower extremity edema Intake & Output: Intake & Output 12/06/19 12/07/19 12/07/19 21:59 05:59 13:59 Intake Total 680 1270 Output Total 1 151 Balance 679 1119 Weight 84.958 kg Intake: IV 970 Sodium Chloride 0.9% 1,000 ml @ 970 75 mls/hr IV .[id number] [facility] Rx#: [id number] Oral 680 300 Output: Void Amount 150 # of times incontinent of urine 1 1 Other: Meal Dinner Percent of Meal Consumed 100% Feeding Ability Independent Stool Size Moderate Moderate Moderate Stool Color Brown Brown Brown Stool Consistency Formed Soft Soft Formed # Voids 1 1 # Bowel Movements 1 1 # of times incontinent of 1 Bowels A/P Assessment and plan (1) CKD (chronic kidney disease): Status: Chronic (2) Hyperkalemia: Status: Acute Narrative A/P Narrative: Scr 1.5 on 12/05/2019 --> 2 on 12/06/2019 --> 1.6 on 12/07/2019 he has baseline CKD, Scr was 2.0 on 07/05/2018 I/O 1.4L/ 1.08L could have a component of hemodynamic insult BP 166/91 12/04-->99/54 12/05. Significant size difference between left and right kidney on ultrasound. 12/05/2019 ua protein, 7 hyaline casts 12/06/2019 renal ultrasound left kidney 9.5 cm, right kidney 12.2 cm. Parenchyma mildly echogenic predominantly on the left. Multiple simple cysts in both kidneys ranging up to 10 cm. Urinary bladder volume 319 cc and patient unable to void. Prostate volume elevated 60 cc *hold ACEi; amlodipine 2.5 mg po PRN SBP =>150. avoid nephrotoxins including Mg/ phos containing stool softeners *Check PVR as patient has urinary retention *The patient reports a history of prostate cancer status post prostate brachytherapy. The findings on the ultrasound do not align with this history. *Obtain records from his PCP/will need urology and nephrology follow-up *If the patient can tolerate p.o., consider stopping IV fluids and allow him to drink approximately 60 ounces liquids hemodynamics and volume normotension. clinically evolemic 06/29/2018 Moderate cardiomegaly is unchanged. Sternotomy changes again noted. acid-base Bicarbonate 23 bone-mineral metabolism ca 9.3 albumin 3.4 BUN/ K 27/4.3. Hyperkalemia resolved Time Spent With Patient Time: Total time spent is greater than 50% in coordination of care (as documented) at patient's floor/unit and/or counseling patient:
--- NOTE | 2019-12-07 08:50 | General Surgery Consult Note ---
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 Chief Complaint: [] Chief complaint: Trauma wound Rt leg 3 weeks. Gangrene skin with Liquefying Hematoma. SEPSIS cc:: CC: Hammad Mahmood MD This is an 89 yr old WM. Patient seen earlier this morning in wound care clinic. LATER Admitted via ER for surgery. H/O Non syncopal ground level fall 3 weeks ago, with CSSSI treated at [facility] in [facility]. He was given local wound care and IV antibiotics, later PO antibiotics, before coming to [facility]. H has a large patch of grangrenous skin, with periwound edema, tenderness, warmth and drainage of heme and serous fluid . Wound probes upto 8 CM at 12 O'Clock and 5 CM at 6 O'Clock. NO purulence, There is foul odor to drainage, PFSH PFSH All Active Problems Leg wound, right (Acute) Cellulitis of right leg (Acute) Atrial fibrillation (Acute) Surgical History Aortic valve replaced (Acute) H/O knee surgery (Acute) History of cataract surgery (Acute) Social History smoking status: Never smoker alcohol intake frequency: does not drink substance use type: does not use MEDS/ALLERGIES Home Medications and Allergies Home Medications Medication Instructions Recorded Confirmed Type amlodipine 2.5 mg PO QDAY 12/05/19 12/05/19 History [id number] C-Mn 1 cap PO DAILY 12/05/19 12/05/19 History [Glucosamine Chondroitin MaxStr] lisinopril 20 mg PO QDAY 12/05/19 12/05/19 History omega-3 fatty acids-fish oil [Fish 1 cap PO DAILY 12/05/19 12/05/19 History Oil] simvastatin 40 mg PO QHS 12/05/19 12/05/19 History Allergies Allergy/AdvReac Type Severity Reaction Status Date / Time hydrocodone AdvReac Mild Agitated Verified 12/06/19 07:35 Physical Examination Vital Signs Vital signs: Afebrile. Vital signs are stable. General physical appearance General physical exam: well developed, well nourished, moderate distress, moderate pain and obese Eyes Eye exam: PERRL and normal ocular movement ENT ENT exam: normal pinna, normal nares, normal mucosa and no congestion Head Head exam IM: Present atraumatic, normal inspection and normocephalic Neck Neck exam: no masses, trachea midline, no lymphadenopathy and no venous distension Cardiovascular Cardiovascular exam IM: Present normal rate and rhythm and irregular rhythm Respiratory Respiratory exam: normal expansion, normal respiratory effort and clear to auscultation Abdomen Abdomen: Present soft, non tender and bowel sounds Integumentary Integumentary: Present other (Gangrenous skin with liquefying hematoma and tenderness. RIGHT mid leg. Pedal pulses palpable. There is edema arouund ankle. ) Neurologic Neurologic: Present normal coordination Musculoskeletal Musculoskeletal: Present normal gait and other (Trauma wound soft tissue RIGHT mid leg ) Psychiatric Psychiatric: Present oriented to time, oriented to person, oriented to place, speech is normal, memory intact and other (ANXIOUS. Explained to patient his and daughter about plan of treatment, Will continue to keep them abreast with developments as they occur,) Results Labs Labs: All other labs normal. A/P Narrative A/P Narrative: Assessment: TRAUMA wound RIGHT mid leg with gangrene of skin and Hematoma, draining. Plan: OR surgical debridement, tissue for c/s and open packing. Time Spent With Patient Time: Total time spent is greater than 50% in coordination of care (as documented) at patient's floor/unit and/or counseling patient: Total time spent with greater than 50% in coordination of care (as documented) at patient's floor/unit and/or counseling patient:: Greater than 35 minutes
--- NOTE | 2019-12-07 08:51 | General Surgery Progress Note ---
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 Chief Complaint: [] Additional PMFSH (Level 3 Only): Saw patient on rounds with Veronica LOERA In Patient wound care nurse. Progress reviews. Patient had an uneventful night. Dressing of RIGHT leg is CDI. Constitutional Exam: AVSS. No changes in NOLAN. HD stable. RIGHT LE with intact ROM and clean dressing of right leg. Toes are PWD. Capillary refill < 3 seconds. Lab results reviewed. A/P Narrative A/P Narrative: Assessment: Satisfactory post surgical progress. Will order PRE ALBUMIN, TSH in addition to routine labs tomorrow. Plan: Consult physical Therapy for OOB and ambulation. FULL weight bearing on foot. Change primary dressing tomorrow and consider initiating wound VAC. Patient will need short term rehab and repeat surgery for skin grafting. Time Spent With Patient Time: Total time spent is greater than 50% in coordination of care (as documented) at patient's floor/unit and/or counseling patient:
[2019-12-07] MEDS: SODIUM POLYSTYRENE SULFONATE 15 GM/60 ML SUSPENSION PO SCH ×2 (08:59→09:06)
[2019-12-07] MEDS: amLODIPine 5 MG TABLET PO SCH (09:00)
[2019-12-07] MEDS: HEPARIN 5,000 UNIT/ML VIAL SQ SCH (09:00)
[2019-12-07] MEDS: DOCUSATE SODIUM 100 MG CAPSULE PO SCH (09:00)
--- NOTE | 2019-12-07 09:31 | General Surgery Progress Note ---
SUBJECTIVE Subjective Patient information: Note initiated : 12/07/19 at 9:25 am Service Date, if different from initiated Date: [] Patient: Ugo Agustin 89 y/o M admitted on 12/05/19 for leg wound. Chief Complaint: [] Additional PMFSH (Level 3 Only): Saw patient on rounds with Jak LOERA and Dr. Ladd, Hospitalist Physician. Pateint had an uneventful night. Ate breakfast, Ambulating and keen to go home. Constitutional Vitals: Vital Signs Temp Pulse Resp BP Pulse Ox 98.4 F 83 18 121/67 94 12/07/19 08:00 12/07/19 08:00 12/07/19 08:00 12/07/19 08:00 12/07/19 08:00 Period Temp Pulse Resp BP Sys/Azar Pulse Ox Last 24 Hr 97.8 F-98.4 F 69-83 18-28 99-136/54-72 91-94 Intake and Output 12/06/19 12/07/19 12/07/19 21:59 05:59 13:59 Intake Total 680 1270 Output Total 1 151 Balance 679 1119 Weight 187 lb 4.8 oz Intake & Output: Intake & Output 12/06/19 12/07/19 12/07/19 21:59 05:59 13:59 Intake Total 680 1270 Output Total 1 151 Balance 679 1119 Weight 187 lb 4.8 oz Intake: IV 970 Sodium Chloride 0.9% 1,000 ml @ 970 75 mls/hr IV .[id number] [facility] Rx#: [id number] Oral 680 300 Output: Void Amount 150 # of times incontinent of urine 1 1 Other: Meal Dinner Percent of Meal Consumed 100% Feeding Ability Independent Stool Size Moderate Moderate Moderate Stool Color Brown Brown Brown Stool Consistency Formed Soft Soft Formed # Voids 1 1 # Bowel Movements 1 1 # of times incontinent of 1 Bowels Exam: AVSS. No changes in NOLAN. Back at his baaaseline. RIGHT leg dressing changed . Wound is dry and clean. C/s GNB Sensitivities pending. Labs reviewed. Nephrology consult appreciated. A/P Narrative A/P Narrative: Assessment: Satisfactory post surgical progress. Plan: OK to discharge home on PO Doxy and Clinda D/W. Hospitalist Physician. Keep dressing clean and dry. NO shower. Elevation of leg on pillow when sitting or lying down. F/U at wound care center on Thursday12/12/2019 Time Spent With Patient Time: Total time spent is greater than 50% in coordination of care (as documented) at patient's floor/unit and/or counseling patient: Total time spent with greater than 50% in coordination of care (as documented) at patient's floor/unit and/or counseling patient:: 25 - 35 minutes
--- NOTE | 2019-12-07 11:00 | Discharge Summary ---
Discharge Provider Provider Patient information: Note initiated : 12/07/19 at 10:46 am Service Date, if different from initiated Date: [] Patient: Ugo Agustin 89 y/o M admitted on 12/05/19 for leg wound. Chief Complaint: [] Date of admission: 12/05/19 17:30 Discharge date: 12/07/19 Primary care physician: William Wang Consults: 12/05/19 Consult to Physician [CONS] Stat Comment: Consulting Provider: Hammad Mahmood Reason For Exam: Physician to Consult Consult to Physician [CONS] Stat Comment: Consulting Provider: Cori Ladd Reason For Exam: Physician to Consult 12/06/19 14:48 Consult to Physician [CONS] Routine Comment: Consulting Provider: Chantel Weber Reason For Exam: Physician to Consult Discharge Meds Discharge Medications Home Medications amlodipine 2.5 mg PO QDAY 12/05/19 [History Confirmed 12/05/19 Last Taken 12/05/19 0700] [id number] C-Mn [Glucosamine Chondroitin MaxStr] 1 cap PO DAILY 12/05/19 [History Confirmed 12/05/19 Last Taken 12/04/19 20:00] simvastatin 40 mg PO QHS 12/05/19 [History Confirmed 12/05/19 Last Taken 12/04/19 20:00] ciprofloxacin HCl 500 mg PO BID #14 tab 12/07/19 [Rx Last Taken Unknown] clindamycin HCl 300 mg PO BID 7 Days #14 cap 12/07/19 [Rx Last Taken Unknown] tramadol 50 mg PO Q4-6HP PRN #12 tab 12/07/19 [Rx Last Taken Unknown] COURSE Hospital Course Hospital course: 1. Leg wound, right with gangrene of skin 2. leg hematoma, right 3. Cellulitis of left, right XR - showed "Few soft tissue swelling, most prominent laterally, compatible ellulitis. No specific evidence for osteomyelitis." Blood culture no growth so far wound culture GNB Discussed with Dr. Mahmood who cleared to discharge the pt to home today. As per Dr. Mahmood, he will be discharged on oral Cipro and clindamycin for 1 week. Keep dressing clean and dry. NO shower. Elevation of leg on pillow when sitting or lying down. Consult physical Therapy for OOB and ambulation. FULL weight bearing on foot. See Dr. Mahmood on Thursday (12/11) 4. Atrial fibrillation Had been on warfarin which was stopped 1 week ago due to to hematoma Discussed with pt and the benefits and risk of warfarin treatment. They fully understood. 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 Hyperkalemia Resolved. 06/09 today Repeat K in 2-3 days 7. HTN Controlled Continue amlodipine 2.5 mg daily Patient is an 89-year-old male with no significant past medical history who was ascended to the ER by wound care Dr. Mahmood office today. At the per patient, he hit his right leg on a pellet about 20 days ago. Since that, in the right leg has been becoming sweating and redness which has been worsening. Patient has been taken a couple of antibiotics including doxycycline and Augmentin which did not help. In the ER, x-ray -no osteomyelitis. Dr. Mahmood was consulted who will do a debridement this afternoon. When I saw this patient in the ER, other than mild pain from the right leg, he was fine. Denied headache, dizziness, chest pain, shortness breath, fever, chills, abdominal pain, or dysuria. 12/05 Patient does not have any complaints. He had debridement yesterday by Dr. ruiz. pain is controlled. This afternoon his blood pressure is soft. Normal saline bolus 250 cc x 1 and continue IV fluid Potassium is high today. Nephrology consult. D50 and insulin, Lasix, Kayexalate added discontinued lisinopril Monitor blood pressure 12/06 Patient does not have any complaints. Vital signs are stable. Creatinine improved to 1.6 today. Potassium normalized. PT okay to go home. Dr. Mahmood cleared to discharge this patient to home today. He will be discharged home with oral Cipro and clindamycin to see Dr. Mahmood on Thursday. He also needs to pcp and nephrology. Keep dressing clean and dry. NO shower. Elevation of leg on pillow when sitting or lying down. Consult physical Therapy for OOB and ambulation. FULL weight bearing on foot. Call PCP for medical issues. Discharge diagnosis: Leg wound, leg hematoma and Cellulitis, right Time Spent with Patient Time attestation: Total time spent providing and/or coordinating discharge s ervices: EXAM Constitutional Vitals: Temp Pulse Resp BP Pulse Ox 98.4 F 83 18 121/67 94 12/07/19 08:00 12/07/19 08:00 12/07/19 08:00 12/07/19 08:00 12/07/19 08:00 Additional findings Additional findings: General - No acute distress Eyes - PERRLA, EOM intact ENT no rhinorrhea, no noticeable or palpable swelling, no redness or rash around throat or on face Neck supple, no JVD, no thyromegaly Respiratory: Lungs -clear, no wheezing or crackles. Cardiovascular - RRR no m/r/g, GI - Normal bowel sounds, no distended, soft. Extremeties - right large deep ulcer (post status debridement) in dressings. Hemo/lymphatic/immune no lymphadenopathy Neurological Alert and oriented x 3, no focal neurological deficits. Psychiatry flat affect Discharge Data Data Completed and Pending Labs on day of discharge: Labs from last 24 hours 12/07/19 12/07/19 12/07/19 05:10 05:10 05:10 WBC 7.9 RBC 3.19 L Hgb 9.9 L Hct 31.6 L MCV 99.1 MCH 31.0 MCHC 31.3 RDW 14.4 Plt Count 238 MPV 12.4 H Gran % 73.4 Lymph % (Auto) 16.9 Forrest % (Auto) 8.4 Eos % (Auto) 0.8 Baso % (Auto) 0.5 Gran # 5.82 Lymph # (Auto) 1.34 L Forrest # (Auto) 0.67 Eos # (Auto) 0.06 Baso # (Auto) 0.04 Sodium 139 Potassium 4.3 Chloride 105 Carbon Dioxide 23 Anion Gap 11.0 BUN 27 H Creatinine 1.6 H GFR Calculation 38 Glucose 88 Calcium 9.4 Total Bilirubin 0.3 AST 21 ALT 19 Alkaline Phosphatase 97 Total Protein 5.8 L Albumin 3.4 Globulin 2.4 Albumin/Globulin Ratio 1.4 Prealbumin 17.9 L TSH 4.54 12/06/19 11:15 WBC RBC Hgb Hct MCV MCH MCHC RDW Plt Count MPV Gran % Lymph % (Auto) Forrest % (Auto) Eos % (Auto) Baso % (Auto) Gran # Lymph # (Auto) Forrest # (Auto) Eos # (Auto) Baso # (Auto) Sodium 136 Potassium 5.3 H Chloride 104 Carbon Dioxide 19 L Anion Gap 13.0 BUN 22 Creatinine 2.0 H GFR Calculation 29 Glucose 147 H Calcium 9.6 Total Bilirubin AST ALT Alkaline Phosphatase Total Protein Albumin Globulin Albumin/Globulin Ratio Prealbumin TSH Preliminary micro results at discharge 12/05/19 16:41 Wound Culture - Preliminary Leg - Right Gram negative bacillus 12/05/19 11:07 Blood Culture - Preliminary Blood 12/05/19 11:10 Blood Culture - Preliminary Blood 12/05/19 16:40 Anaerobic Culture - Preliminary Leg - Right Discharge Plan Patient/Caregiver Discharge Instructions Activity: increase activity as tolerated Diet: Renal Instructions: Debridement (DC) Activity Restrictions/Additional Instructions: Leave the dressing clean, dry, and in place until seen in the physician's office. He will be discharged home with oral Cipro and clindamycin to see Dr. Mahmood on Thursday (12/11). He also needs to pcp in 3 days and nephrology within one week. Repeat CBC, CMP and electrolytes within 3 days. Keep dressing clean and dry. NO shower. Elevation of leg on pillow when sitting or lying down. Consult physical Therapy for OOB and ambulation. FULL weight bearing on foot. He will be discharged on renal diet today but his diet needs to be adjusted based on his renal function. Call PCP for medical issues. Prescriptions: New tramadol 50 mg Tablet 50 mg PO Q4-6HP PRN (Reason: Pain) Qty: 12 RF: 0 ciprofloxacin HCl 500 mg tablet 500 mg PO BID Qty: 14 RF: 0 clindamycin HCl 300 mg capsule 300 mg PO BID 7 Days Qty: 14 RF: 0 Continued amlodipine 2.5 mg Tablet 2.5 mg PO QDAY RF: 0 simvastatin 40 mg Tablet 40 mg PO QHS RF: 0 [id number] C-Mn [Glucosamine Chondroitin MaxStr] 500-400 mg Capsule 1 cap PO DAILY RF: 0 Discontinued lisinopril 20 mg Tablet 20 mg PO QDAY RF: 0 omega-3 fatty acids-fish oil [Fish Oil] 360-1,200 mg Capsule 1 cap PO DAILY RF: 0 Other Ambulatory Orders: Complete Blood Count (Routine) Timeframe: 2 Days Facility: [facility] - Location: Laboratory Ordered By: Cori Ladd Comprehensive Metabolic Panel (Routine) Timeframe: 2 Days Facility: [facility] - Location: Laboratory Ordered By: Cori Ladd Magnesium (Routine) Timeframe: 2 Days Facility: [facility] - Location: Laboratory Ordered By: Cori Ladd Phosphorous (Routine) Timeframe: 3 Days Facility: [facility] - Location: Laboratory Ordered By: Cori Ladd Follow Up Plan Follow up with: William Wang [Primary Care Provider] - Hammad Mahmood MD [Physician] - 12/12/19 1:20 pm Unknown [Outside] (see Dr. Mahmood on Thursday (12/11). He also needs to pcp in 3 days and nephrology within one week. ) Patient Disposition: Home, Self-Care Prognosis: Fair Discharge Orders: Discharge Order (Routine); Ordered 12/07/19 Ordered By: Cori Ladd
--- NOTE | 2019-12-07 12:34 | Surgical Pathology Report ---
HISTOLOGY SPECIMEN MICROSCOPIC DIAGNOSIS SPECIMEN A - TISSUE, SUBMITTED "BLOOD CLOT", REMOVAL: -- HEMORRHAGIC MATERIAL. SPECIMEN B - SKIN, RIGHT LEG WOUND, BIOPSY: -- ULCERATED, NECROTIC TISSUE WITH ACUTE INFLAMMATION AND HEMORRHAGE. (RLF:sln) PROCEDURAL IMPRESSION Hematoma. GROSS DESCRIPTION Specimen A: Received in formalin labeled with A and designated blood clot, is a 3.3 x 1.9 x 0.7 cm red-brown clot-like fragment. Submitted in one cassette. Specimen B: Received in formalin labeled with B and designated as gangrene, is a 7.8 x 4 by up to 0.7 cm fragment of red-brown to [place] tissue. The margin is inked black. [employer] portions submitted in one cassette. (KGW:sln) Electronically Signed by: Shelbi Humphries M.D.
== END 2019-12-07 13:15 | disposition home or self-care (01) ==
LOC: ED 10:51 → SUR 16:00 → INTOOBSV 17:30 → MEDSUR 17:30
PROVIDERS: ADMIT Internal Medicine; ATTEND Internal Medicine